=== PATIENT | male | born 1985 | race Caucasian/White ===

== ENCOUNTER 2020-11-01 11:37 | Emergency (ER) | payer OTHER ==
[2020-11-01 12:41] LABS: BILIRUBIN 1+ mg/dL (NEGATIVE); BLOOD NEGATIVE Ery/uL (NEGATIVE); CLARITY CLEAR (CLEAR); COLOR YELLOW (YELLOW); GLUCOSE (U) NORMAL (NORMAL); LEUKOCYTES NEGATIVE Leu/uL (NEGATIVE); NITRITE NEGATIVE (NEGATIVE); PROTEIN NEGATIVE (NEGATIVE); UROBILINOGEN 0.2 mg/dL (0.2-1.0)
[2020-11-01 12:52] LABS: BUN/CREAT RATIO (CALC) 11.6 RATIO; CREATININE 1.12 mg/dL (0.67-1.17); POTASSIUM 3.9 mmol/L (3.5-5.1)
[2020-11-01 12:53] LABS: BASOPHIL 0.6 % (0-2); EOSINOPHIL 3.8 % (0-5); HCT 51.3 % (42.0-52.0); HGB 18.1 g/dl (13.2-18.0); LYMPHOCYTE 22.3 % (15-48); MCH 32.7 pg (25.0-31.0); MCHC 35.3 g/dL (32.0-36.0); MCV 92.6 fL (78.0-100.0); MONOCYTE 9.1 % (0-12); MPV 10.7 fL (6.0-9.5); NEUTROPHIL 63.7 % (41-80); NRBC 0; PLT 258 K/uL (150-400); RBC 5.54 M/uL (4.70-6.00); WBC 8.1 K/uL (4.0-10.5)
[2020-11-01] MEDS ORDERED: NAPROXEN500 MG PO ×2 (13:34→13:35)
== END 2020-11-01 13:49 | disposition home or self-care (01) ==
LOC: FER 11:37
PROVIDERS: Emergency Medicine
DX: S39.011A Strain of muscle, fascia and tendon of abdomen, initial encounter (principal); F17.210 Nicotine dependence, cigarettes, uncomplicated; X58.XXXA Exposure to other specified factors, initial encounter
CPT/HCPCS: 36415; 80048; 81003; 85025; 99284